=== PATIENT | male | born 1955 | race Caucasian/White ===

== ENCOUNTER 2023-04-14 09:42 | Outpatient (CLI) | payer MEDICARE, BC | END 2023-04-14 09:43 | disposition EMS.NT | LOC: EMS 09:42 | DX: S69.92XA Unspecified injury of left wrist, hand and finger(s), initial encounter (principal); W01.0XXA Fall on same level from slipping, tripping and stumbling without subsequent striking against object, initial encounter; Y92.89 Other specified places as the place of occurrence of the external cause ==

== ENCOUNTER 2023-04-14 10:28 | Emergency (ER) | payer MEDICARE, BC ==
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
[2023-04-14] MEDS ORDERED: HYDROmorphone 1 MG/ML CARPUJECT IM STA (11:04)
--- NOTE | 2023-04-14 11:10 | XRAY Report ---
PROCEDURE: Wrist 3 View LT INDICATIONS: trauma TECHNIQUE: 3 views of the wrist were acquired. COMPARISON: None. FINDINGS: Bones: Acute comminuted of an impacted fracture involving distal radial shaft is seen with fracture l ine extending to radiocarpal joint space. There is dorsal displacement and angulation of fracture sit e. No other fracture is seen. Soft tissues: No suspicious soft tissue calcifications or masses. IMPRESSION: Acute comminuted, impacted and slightly displaced distal radial fracture as above. Reviewed by: Jonn Castañeda MD on 04/14/2023 11:08 AM PDT Approved by: Jonn Castañeda MD on 04/14/2023 11:08 AM PDT Station ID: [id number]
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
[2023-04-14 12:54] VITALS: BP 122/74; O2SAT 99
== END 2023-04-14 12:54 | disposition home or self-care (01) ==
LOC: ED 10:28
DX: S62.102A Fracture of unspecified carpal bone, left wrist, initial encounter for closed fracture (principal); S20.212A Contusion of left front wall of thorax, initial encounter; V19.9XXA Pedal cyclist (driver) (passenger) injured in unspecified traffic accident, initial encounter; Y93.55 Activity, bike riding
CPT/HCPCS: 29125; 71101; 73110; 96372; 99284; J1170